=== PATIENT | female | born 1975 | race African-American/Black ===

== ENCOUNTER 2021-10-14 18:33 | Emergency (ER) | payer BC, OTHER ==
[~2021-10-14] VITALS: Ht 165.1 cm; Wt 100.0 kg
[~2021-10-14 18:33] MED LIST: OLME40TA8 PO
[2021-10-14 18:45] VITALS: BP 137/78
== END 2021-10-14 19:50 | disposition left against medical advice (07) ==
LOC: EMS 18:34
DX: R51.9 Headache, unspecified (principal); M54.2 Cervicalgia; Z53.21 Procedure and treatment not carried out due to patient leaving prior to being seen by health care provider